=== PATIENT | female | born 1980 | race Hispanic/Latino ===

== ENCOUNTER 2022-08-20 23:48 | Inpatient (IN) | payer SELFPAY ==
[2022-08-21 00:10] VITALS: BMI 26.6
[2022-08-21] MEDS ORDERED: hydrALAZINE 20 MG/ML VIAL SLOW IVP PRN (00:29)
[2022-08-21] MEDS ORDERED: metroNIDAZOLE 500 MG TAB PO SCH ×2 (04:30→07:15)
[2022-08-21] MEDS: Clotrimazole 2% 3 Day Vag Cr 22.2 GM TUBE VAG SCH (07:40)
[2022-08-21] MEDS ORDERED: Acetaminophen 500 MG TAB PO SCH ×2 (08:15→15:30)
[2022-08-21] MEDS ORDERED: Lactated Ringer's 1,000 ML IV SCH (10:30)
[2022-08-21] MEDS ORDERED: HumaLOG 300 UNITS/3 ML VIAL SC PRN ×2 (13:06)
[2022-08-21] MEDS ORDERED: Dextrose 5% in Water 1,000 ML IV PRN (13:08)
[2022-08-21] MEDS ORDERED: Dextrose 50% Abboject 50 ML SYRINGE SLOW IVP PRN (13:08)
[2022-08-21 15:10] LABS: Syphilis Antibody Nonreactive (Nonreactive); Syphilis Antibody Index 0.07 S/CO (<1.00 Non-Reactive)
[2022-08-21] MEDS ORDERED: Iron Sucrose Complex 500 MG in Sodium Chloride 0.9% 250 ML 250 ML IVPB SCH (16:00)
[2022-08-21 16:09] LABS: Amphetamine Not Detected (NotDetected); Barbiturates Screen Not Detected (NotDetected); Benzodiazepine Screen Not Detected (NotDetected); Cocaine Metabolite Screen Not Detected (NotDetected); Methadone Not Detected (NotDetected); Methamphetamine Not Detected (NotDetected); Opiate Screen Not Detected (NotDetected); Oxycodone Screen Not Detected (NotDetected); Phencyclidine (PCP) Not Detected (NotDetected); THC/Cannabinoid Screen Not Detected (NotDetected); Tricyclic Screen Not Detected (NotDetected)
[2022-08-21] MEDS: HumaLOG 300 UNITS/3 ML VIAL SC PRN (16:26)
[2022-08-21] MEDS ORDERED: Melatonin 3 MG TAB PO PRN (19:41)
[2022-08-21] MEDS: Acetaminophen 500 MG TAB PO PRN (21:29)
[2022-08-22] MEDS: Clotrimazole 2% 3 Day Vag Cr 22.2 GM TUBE VAG SCH (00:47)
[2022-08-22] MEDS: metroNIDAZOLE 500 MG TAB PO SCH ×2 (12:11→21:26)
[2022-08-22] MEDS: Acetaminophen 500 MG TAB PO PRN (12:11)
[2022-08-22] MEDS: HumaLOG 300 UNITS/3 ML VIAL SC PRN (14:45)
[2022-08-22] MEDS: Insulin Regular 300 UNITS/3 ML VIAL SC SCH (16:46)
[2022-08-22] MEDS: NPH, Human Insulin Isophane 300 UNIT/3 ML VIAL SC SCH (21:04)
[2022-08-23] MEDS: Insulin Regular 300 UNITS/3 ML VIAL SC SCH ×2 (02:51→07:51)
[2022-08-23] MEDS: NPH, Human Insulin Isophane 300 UNIT/3 ML VIAL SC SCH ×2 (02:52→08:00)
[2022-08-23] MEDS: Clotrimazole 2% 3 Day Vag Cr 22.2 GM TUBE VAG SCH (02:52)
[2022-08-23 05:31] VITALS: TEMP 98.4
[2022-08-23 05:32] VITALS: BP 113/59
[2022-08-23] MEDS: metroNIDAZOLE 500 MG TAB PO SCH (07:53)
[2022-08-23] MEDS ORDERED: NPH, Human Insulin Isophane 300 UNIT/3 ML VIAL SC SCH (09:00)
[2022-08-23] MEDS: HumaLOG 300 UNITS/3 ML VIAL SC PRN (10:43)
== END 2022-08-23 11:35 | disposition home or self-care (01) | DRG 832 ==
LOC: CSHLD/OP 23:48 → CSHANTE 08-21 12:49 → OBSVTOIN 08-22 08:00
PROVIDERS: ADMIT Obstetrics & Gynecology; ATTEND Obstetrics & Gynecology
DX: O36.8120 Decreased fetal movements, second trimester, not applicable or unspecified (principal); O23.592 Infection of other part of genital tract in pregnancy, second trimester; O24.112 Pre-existing type 2 diabetes mellitus, in pregnancy, second trimester; O98.812 Other maternal infectious and parasitic diseases complicating pregnancy, second trimester; Z3A.27 27 weeks gestation of pregnancy; D64.9 Anemia, unspecified; O34.211 Maternal care for low transverse scar from previous cesarean delivery; O99.012 Anemia complicating pregnancy, second trimester; Z90.49 Acquired absence of other specified parts of digestive tract; Z79.899 Other long term (current) drug therapy; E11.65 Type 2 diabetes mellitus with hyperglycemia; B37.9 Candidiasis, unspecified; B96.89 Other specified bacterial agents as the cause of diseases classified elsewhere
CPT/HCPCS: 36416; 76805; 76819; 80306; 86762; 86780; 87480; 87510; 87660; 93005; 93010; 96374; 99285; G0378; J1756; J1815; J7050

== ENCOUNTER 2022-09-15 10:23 | Inpatient (IN) | payer MEDICAID, OTHER, SELFPAY ==
[2022-09-14 12:34] LABS: Hemoglobin 9.7 g/dL (12.0-15.5); Platelet Count 368 10x3/uL (150-450)
[2022-09-14 13:09] LABS: Syphilis Antibody Nonreactive (Nonreactive); Syphilis Antibody Index 0.12 S/CO (<1.00 Non-Reactive)
[2022-09-14 13:23] LABS: HBSAg Index 0.26 S/CO (0-0.99); Hep B Surf Ag Non-Reactive S/CO (NonReactive)
[2022-09-15] MEDS ORDERED: hydrALAZINE 20 MG/ML VIAL SLOW IVP PRN ×3 (10:39→13:20)
[2022-09-15] MEDS ORDERED: Tranexamic Acid 1,000 MG/10 ML VIAL IVP PRN ×2 (10:39→10:42)
[2022-09-15] MEDS ORDERED: Carboprost 250 MCG/ML AMP IM PRN ×2 (10:39→10:42)
[2022-09-15] MEDS ORDERED: Ondansetron PF 4 MG/2 ML Vial IVP PRN ×3 (10:39→11:35)
[2022-09-15] MEDS ORDERED: Misoprostol 200 MCG TAB PR PRN ×3 (10:39→13:20)
[2022-09-15] MEDS ORDERED: Methylergonovine 0.2 MG/ML VIAL IM PRN ×3 (10:39→13:20)
[2022-09-15] MEDS ORDERED: Diphenoxylate HCl/Atropine Tablet PO PRN ×3 (10:39→10:42)
[2022-09-15] MEDS ORDERED: Famotidine/PF 20 mg/2ml Vial SLOW IVP PRN ×2 (10:39→10:42)
[2022-09-15] MEDS ORDERED: Bicitra 30 ML UDCUP PO PRN ×2 (10:39→10:42)
[2022-09-15] MEDS ORDERED: Promethazine HCl 25 MG/ML VIAL IM PRN ×4 (10:39→13:20)
[2022-09-15] MEDS ORDERED: CEFAZOLIN 2 GM in Sodium Chloride 0.9% 100 ML IVPB SCH ×2 (10:45)
[2022-09-15] MEDS ORDERED: NS w/ Oxytocin 30 units 500 ML IV SCH ×3 (10:45→13:30)
[2022-09-15] MEDS ORDERED: Lactated Ringer's 1,000 ML IV SCH ×2 (10:45)
[2022-09-15] MEDS ORDERED: diphenhydrAMINE 50 MG/ML VIAL IVP PRN (11:35)
[2022-09-15] MEDS ORDERED: Meperidine HCl/PF 25 MG/ML VIAL SLOW IVP PRN (11:35)
[2022-09-15] MEDS ORDERED: Naloxone HCl 0.4 mg/ml Vial IVP PRN ×2 (11:35)
[2022-09-15] MEDS ORDERED: Moisturizing Cream (Eucerin) 113 GM JAR TOP PRN (11:35)
[2022-09-15] MEDS ORDERED: Ondansetron HCl/PF 4 MG/2 ML Vial IVP PRN (11:35)
[2022-09-15] MEDS ORDERED: Ketorolac Tromethamine 30 MG/ML VIAL IVP PRN ×2 (11:35→17:40)
[2022-09-15] MEDS ORDERED: Naloxone HCl 0.4 mg/ml Vial IV PRN (11:35)
[2022-09-15] MEDS ORDERED: Promethazine HCl 25 MG SUPP PR PRN (11:35)
[2022-09-15] MEDS ORDERED: Fentanyl 100 MCG/2 ML VIAL SLOW IVP PRN (11:35)
[2022-09-15] MEDS ORDERED: Misoprostol 200 MCG TAB ONE (11:39)
[2022-09-15] MEDS ORDERED: Methylergonovine 0.2 MG/ML VIAL ONE (11:39)
[2022-09-15] MEDS ORDERED: Carboprost 250 MCG/ML AMP ONE (11:39)
[2022-09-15] MEDS ORDERED: Communication Order-Pharmacy FS SCH (11:45)
[2022-09-15] MEDS ORDERED: Ketorolac Tromethamine 30 MG/ML VIAL IVP SCH (11:45)
[2022-09-15 11:55] VITALS: BMI 26.1
[2022-09-15] MEDS ORDERED: Ondansetron PF 4 MG/2 ML Vial ONE ×2 (12:19→12:38)
[2022-09-15] MEDS ORDERED: Dexamethasone 4 mg/ml Vial ONE ×2 (12:19→12:38)
[2022-09-15] MEDS ORDERED: Oxytocin 10 UNITS/ML VIAL ONE ×3 (12:19→12:49)
[2022-09-15] MEDS ORDERED: Morphine PF 10 MG/10 ML VIAL ONE (12:19)
[2022-09-15] MEDS ORDERED: Ketorolac Tromethamine 30 MG/ML VIAL ONE ×2 (12:19→12:38)
[2022-09-15] MEDS ORDERED: Phenylephrine 40 MG/NS 250 ML 250 ML ONE ×2 (12:19→12:38)
[2022-09-15] MEDS ORDERED: diphenhydrAMINE 50 MG/ML VIAL ONE (13:07)
[2022-09-15] MEDS ORDERED: Boostrix 0.5 ML (Tdap) VIAL (>/=7 yrs of age) IM ONE (13:20)
[2022-09-15] MEDS ORDERED: Varicella virus, LIVE 0.5 ML VIAL SC ONE (13:20)
[2022-09-15] MEDS ORDERED: diphenhydrAMINE 25 MG CAP PO PRN (13:20)
[2022-09-15] MEDS ORDERED: Measles/Mumps/Rubella 10 MCG/0.5 ML VIAL SC ONE (13:20)
[2022-09-15] MEDS ORDERED: Lanolin Ointment 7 GM TUBE TOP PRN (13:20)
[2022-09-15] MEDS ORDERED: Simethicone Chewable 80 MG TAB PO PRN (13:20)
[2022-09-15] MEDS ORDERED: Guaifenesin DM 100-10/5 ML UDCUP PO PRN (14:13)
[2022-09-15 14:17] LABS: Amphetamine Not Detected (NotDetected); Barbiturates Screen Not Detected (NotDetected); Benzodiazepine Screen Not Detected (NotDetected); Cocaine Metabolite Screen Not Detected (NotDetected); Methadone Not Detected (NotDetected); Methamphetamine Not Detected (NotDetected); Opiate Screen Not Detected (NotDetected); Oxycodone Screen Not Detected (NotDetected); Phencyclidine (PCP) Not Detected (NotDetected); THC/Cannabinoid Screen Not Detected (NotDetected); Tricyclic Screen Not Detected (NotDetected)
[2022-09-15] MEDS ORDERED: Meperidine HCl/PF 25 MG/ML VIAL ONE (15:08)
[2022-09-15 16:26] LABS: #Monocytes 0.2 10x3/uL (0.0-1.1); #Neutrophils 12.6 10x3/uL (1.5-8.4); %Basophils 0.2 % (0.0-2.0); %Eosinophils 0.1 % (0.0-6.0); %Lymphocytes 8.5 % (18.0-47.0); %Monocytes 1.4 % (0.0-10.0); %Neutrophils 89.2 % (40.0-75.0); Mean Corpuscular HGB CONC 30.9 g/dL (32.0-36.0); Mean Platelet Volume 11.3 fl (7.4-10.4); Platelet Count 386 10x3/uL (150-450); RBC Distribution Width 21.3 % (11.5-14.5); White Blood Cell (WBC) Count 14.1 10x3/uL (3.5-10.5)
[2022-09-15 16:39] LABS: ALT (SGPT) 16 U/L (8-55); AST (SGOT) 73 U/L (5-34); Albumin 2.9 g/dL (3.5-5.0); Alkaline Phosphatase 137 U/L (40-110); Anion Gap 13 mmol/L (10-20); BUN (Urea Nitrogen) 9 mg/dL (7.0-18.7); Bilirubin, Total 0.4 mg/dL (0.2-1.2); Calc. Creatinine Clearance 158 mL/min (70-130); Calcium 8.6 mg/dL (7.8-10.44); Carbon Dioxide 21 mmol/L (22-29); Chloride 104 mmol/L (98-107); Estimated GFR 119; Globulin 3.8 g/dL (2.4-3.5); Glucose 146 mg/dL (70-105); Potassium 4.3 mmol/L (3.5-5.1); Protein, Total 6.7 g/dL (6.0-8.3); Sodium 134 mmol/L (136-145)
[2022-09-15 17:31] LABS: Creatinine, Urine 65.11 mg/dL (47-110)
[2022-09-15] MEDS: Ferrous Sulfate 325 MG TAB PO SCH (21:20)
[2022-09-15] MEDS: Docusate 100 MG CAP PO SCH (21:20)
[2022-09-15] MEDS: Ondansetron PF 4 MG/2 ML Vial IVP PRN (21:32)
[2022-09-15] MEDS ORDERED: Zolpidem Tartrate 5 MG TAB PO PRN (23:50)
[2022-09-16 05:16] LABS: Hemoglobin 8.5 g/dL (12.0-15.5); Mean Corpuscular HGB CONC 30.7 g/dL (32.0-36.0); Mean Corpuscular Hemoglobin 24.8 pg (27.0-33.0); Mean Corpuscular Volume 80.8 fl (81.6-98.3); Mean Platelet Volume 11.4 fl (7.4-10.4); Platelet Count 313 10x3/uL (150-450); Red Blood Cell (RBC) Count 3.43 10x6/uL (3.90-5.03)
[2022-09-16 08:50] LABS: ALT (SGPT) 16 U/L (8-55); AST (SGOT) 88 U/L (5-34); Albumin 2.4 g/dL (3.5-5.0); Alkaline Phosphatase 113 U/L (40-110); Anion Gap 14 mmol/L (10-20); BUN (Urea Nitrogen) 11 mg/dL (7.0-18.7); Bilirubin, Total 0.3 mg/dL (0.2-1.2); Calc. Creatinine Clearance 147 mL/min (70-130); Calcium 8.2 mg/dL (7.8-10.44); Carbon Dioxide 21 mmol/L (22-29); Chloride 104 mmol/L (98-107); Estimated GFR 117; Globulin 3.2 g/dL (2.4-3.5); Glucose 116 mg/dL (70-105); Protein, Total 5.6 g/dL (6.0-8.3); Sodium 135 mmol/L (136-145)
[2022-09-16] MEDS: Ferrous Sulfate 325 MG TAB PO SCH ×2 (09:08→21:37)
[2022-09-16] MEDS: Docusate 100 MG CAP PO SCH ×2 (09:08→21:39)
[2022-09-16] MEDS: Prenatal Vitamin 1 TAB PO SCH (09:08)
[2022-09-16] MEDS: Ondansetron PF 4 MG/2 ML Vial IVP PRN (09:09)
[2022-09-16] MEDS: HYDROcodone/Acetaminophen 5/325 mg Tablet PO PRN ×3 (09:20→20:01)
[2022-09-16] MEDS: Ibuprofen 800 MG TAB PO SCH ×2 (13:08→21:37)
[2022-09-17] MEDS: Ibuprofen 800 MG TAB PO SCH ×2 (05:12→13:32)
[2022-09-17] MEDS: HYDROcodone/Acetaminophen 5/325 mg Tablet PO PRN ×2 (08:31→13:30)
[2022-09-17] MEDS: Prenatal Vitamin 1 TAB PO SCH (08:32)
[2022-09-17] MEDS: Ferrous Sulfate 325 MG TAB PO SCH (08:32)
[2022-09-17] MEDS: Docusate 100 MG CAP PO SCH (08:32)
[2022-09-17 11:42] VITALS: BP 133/63; TEMP 97.9
== END 2022-09-17 16:35 | disposition home or self-care (01) | DRG 783 ==
LOC: CSHLD 10:23 → CSHPP 15:45
PROVIDERS: ADMIT Obstetrics & Gynecology; ATTEND Obstetrics & Gynecology
PROC: 10D00Z1 Extraction of Products of Conception, Low, Open Approach (ICD-10-PCS; principal; 2022-09-15)
PROC: 0UT70ZZ Resection of Bilateral Fallopian Tubes, Open Approach (ICD-10-PCS; 2022-09-15)
DX: O34.211 Maternal care for low transverse scar from previous cesarean delivery (principal); O24.12 Pre-existing type 2 diabetes mellitus, in childbirth; O34.13 Maternal care for benign tumor of corpus uteri, third trimester; D25.9 Leiomyoma of uterus, unspecified; E11.9 Type 2 diabetes mellitus without complications; Z79.899 Other long term (current) drug therapy; Z3A.37 37 weeks gestation of pregnancy; Z37.0 Single live birth; Z79.4 Long term (current) use of insulin
CPT/HCPCS: 36415; 36416; 36430; 51702; 80053; 80306; 82570; 84156; 85014; 85018; 85025; 85027; 85049; 86780; 86850; 86900; 86901; 87340; 87804; 88302; J1100; J1200; J1885; J2175; J2274; J2405; J2590; J3490; J7120